=== PATIENT | male | born 1960 | race Caucasian/White ===

== ENCOUNTER 2018-05-23 17:44 | Emergency (ER) | payer OTHER, SELFPAY ==
[~2018-05-23] VITALS: Ht 165.1 cm; Wt 68.0 kg
--- NOTE | 2018-05-23 18:13 | Emergency Room Report ---
History of Present Illness General Chief Complaint: Medical Clearance Source: Patient Present Illness HPI 58-year-old male presents emergency department for medical clearance. Patient denies symptoms at this time he does report he is having some gastritis and he has a history of stomach ulcers for which he takes omeprazole for. he also has a history of high blood pressure, and bipolar disorder. Denies CP, Palpitations , LOC, AMS, dizziness, Changes in Vision, Sensation, paresthesias, or a sudden severe headache. Allergies: Coded Allergies: No Known Allergies (Unverified , 05/23/18) Patient History Past Medical History: see triage record, HTN Past Surgical History: none Pertinent Family History: none Reviewed Nursing Documentation: PMH: Agreed; PSxH: Agreed Nursing Documentation-PMH Hx Gastrointestinal Problems: Yes - ulcers Review of Systems All Other Systems: negative except mentioned in HPI Physical Exam Vital Signs Date Time Temp Pulse Resp B/P (MAP) Pulse Ox O2 Delivery O2 Flow Rate FiO2 05/23/18 17:44 98.4 144 18 119/81 97 Room Air 98.4 Sp02 EP Interpretation: reviewed, normal General Appearance: no apparent distress, alert, GCS 15, non-toxic Head: normocephalic, atraumatic Eyes: bilateral eye normal inspection, bilateral eye PERRL ENT: hearing grossly normal, normal voice Neck: full range of motion Respiratory: chest non-tender, lungs clear, normal breath sounds, speaking full sentences Cardiovascular #1: regular rate, rhythm, no edema, tachycardia Gastrointestinal: normal bowel sounds, non tender, soft Rectal: deferred Musculoskeletal: back normal, gait/station normal, normal range of motion, non- tender Neurologic: alert, oriented x3, responsive, motor strength/tone normal, sensory intact, speech normal, grossly normal Psychiatric: judgement/insight normal Skin: normal color, no rash, warm/dry, well hydrated, other - no obvious open wounds or infections Medical Decision Making PA Attestation Dr. lowry is my supervising Physician whom patient management has been discussed with. Diagnostic Impression: Primary Impression: Medical clearance for incarceration ER Course 58-year-old male presents emergency department for medical clearance. Patient denies symptoms at this time he does report he is having some gastritis and he has a history of stomach ulcers for which he takes omeprazole for. he also has a history of high blood pressure, and bipolar disorder. Denies CP, Palpitations , LOC, AMS, dizziness, Changes in Vision, Sensation, paresthesias, or a sudden severe headache. Ddx considered but are not limited to Head Trauma, VT, ACS, SI/HI, URI, SAH, Fractures, Dislocations, Tazer barbs, Abrasions. Vital signs: tachycardic, pt. is afebrile H&PE are most consistent with: normal limited physical examination. ORDERS: -EKG: sinus tach no acute ST changes. - Troponin: WNL -CK: mild elevation at 335 CBC: unremarkable CMP: normal electrolytes ED INTERVENTIONS: -1 Liter NS -5mg Metoprolol IV pt. hr. has normalized. EKG showed no acute ST changes, cardiac enzymes were normal. Pt. Stable for close outpatient follow up. D/c'd to Law enforcement. DISCHARGE: At this time pt. is stable for d/c to law enforcement. Will provide printed patient care instructions, and any necessary prescriptions. Care plan and follow up instructions have been discussed with the patient prior to discharge. Labs Test 05/23/18 18:30 White Blood Count 9.8 K/UL (4.8-10.8) Red Blood Count 5.43 M/UL (4.70-6.10) Hemoglobin 16.2 G/DL (14.2-18.0) Hematocrit 48.3 % (42.0-52.0) Mean Corpuscular Volume 89 FL (80-99) Mean Corpuscular Hemoglobin 29.9 PG (27.0-31.0) Mean Corpuscular Hemoglobin Concent 33.6 G/DL (32.0-36.0) Red Cell Distribution Width 12.2 % (11.6-14.8) Platelet Count 203 K/UL (150-450) Mean Platelet Volume 5.5 FL (6.5-10.1) Neutrophils (%) (Auto) 77.3 % (45.0-75.0) Lymphocytes (%) (Auto) 7.2 % (20.0-45.0) Monocytes (%) (Auto) 14.4 % (1.0-10.0) Eosinophils (%) (Auto) 0.3 % (0.0-3.0) Basophils (%) (Auto) 0.9 % (0.0-2.0) Sodium Level 140 MMOL/L (136-145) Potassium Level 3.7 MMOL/L (3.5-5.1) Chloride Level 101 MMOL/L (98-107) Carbon Dioxide Level 25 MMOL/L (21-32) Anion Gap 14 mmol/L (5-15) Blood Urea Nitrogen 7 mg/dL (7-18) Creatinine 1.0 MG/DL (0.55-1.30) Estimat Glomerular Filtration Rate > 60 mL/min (>60) Glucose Level 122 MG/DL (74-106) Calcium Level 10.7 MG/DL (8.5-10.1) Total Bilirubin 0.7 MG/DL (0.2-1.0) Aspartate Amino Transf (AST/SGOT) 53 U/L (15-37) Alanine Aminotransferase (ALT/SGPT) 68 U/L (12-78) Alkaline Phosphatase 101 U/L (46-116) Total Creatine Kinase 335 U/L (26-308) Troponin I 0.000 ng/mL (0.000-0.056) Total Protein 8.0 G/DL (6.4-8.2) Albumin 3.8 G/DL (3.4-5.0) Globulin 4.2 g/dL Albumin/Globulin Ratio 0.9 (1.0-2.7) EKG Diagnostic Results EP Interpretation: Dr. Holley Rate: tachycardiac - 134 bpm Rhythm: NSR ST Segments: no acute changes ASA given to the pt in ED: No PA Scribe Text This Interpretation was scribed by KRIS Carmona. Last Vital Signs Date Time Temp Pulse Resp B/P (MAP) Pulse Ox O2 Delivery O2 Flow Rate FiO2 05/23/18 17:44 98.4 144 18 119/81 97 Room Air 98.4 Disposition: D/C TO LAW ENFORCEMENT IN CUST Condition: Stable Departure Forms: Retirement Clearance Patient Instructions: Medical Screening Exam Additional Instructions: Take medications as directed. Follow up with a Primary Care Provider in 3-5 days, even if your symptoms have resolved. --Please review list of primary care clinics, if you do not already have a primary care provider Return sooner to ED if new symptoms occur, or current symptoms become worse. - Please note that this Emergency Department Report was dictated using [employer] wall finisher technology software, occasionally this can lead to erroneous entry secondary to interpretation by the dictation equipment. Katie Carmona May 23, 2018 18:13
[2018-05-23 18:33] VITALS: BP 157/114
[2018-05-23] MEDS ORDERED: Metoprolol 5mg/5ml Inj IVP ONE (18:45)
[2018-05-23 19:36] LABS: BASOPHILS % (AUTO) 0.9 % (0.0-2.0); EOSINOPHILS % (AUTO) 0.3 % (0.0-3.0); HEMATOCRIT 48.3 % (42.0-52.0); HEMOGLOBIN 16.2 G/DL (14.2-18.0); LYMPHOCYTES % (AUTO) 7.2 % (20.0-45.0); MEAN CORPUSCULAR VOLUME 89 FL (80-99); MONOCYTES % (AUTO) 14.4 % (1.0-10.0); NEUTROPHILS % (AUTO) 77.3 % (45.0-75.0); PLATELET COUNT 203 K/UL (150-450); RED BLOOD COUNT 5.43 M/UL (4.70-6.10); RED CELL DISTRIBUTION WIDTH 12.2 % (11.6-14.8); WHITE BLOOD COUNT 9.8 K/UL (4.8-10.8)
[2018-05-23 19:37] LABS: ANION GAP 14 mmol/L (5-15); BLOOD UREA NITROGEN 7 mg/dL (7-18); CALCIUM 10.7 MG/DL (8.5-10.1); CARBON DIOXIDE 25 MMOL/L (21-32); CHLORIDE 101 MMOL/L (98-107); POTASSIUM 3.7 MMOL/L (3.5-5.1); SODIUM 140 MMOL/L (136-145)
[2018-05-23 19:42] LABS: ALANINE AMINOTRANSFERASE 68 U/L (12-78); ALBUMIN 3.8 G/DL (3.4-5.0); ALBUMIN/GLOBULIN RATIO 0.9 (1.0-2.7); ALKALINE PHOSPHATASE 101 U/L (46-116); ASPARTATE AMINO TRANSFERASE 53 U/L (15-37); BILIRUBIN,TOTAL 0.7 MG/DL (0.2-1.0); CREATINE KINASE 335 U/L (26-308)
[2018-05-23 19:54] VITALS: BP 169/105
[2018-05-23 20:01] VITALS: BP 169/105
== END 2018-05-23 20:01 ==
LOC: EMR 18:27
DX: Z02.89 Encounter for other administrative examinations (principal); I10 Essential (primary) hypertension; Z87.19 Personal history of other diseases of the digestive system; F31.9 Bipolar disorder, unspecified
CPT/HCPCS: 36415; 80053; 82550; 84484; 85025; 93005; 99283

== ENCOUNTER 2018-06-13 19:33 | Emergency (ER) | payer SELFPAY, OTHER ==
[~2018-06-13] VITALS: Ht 165.1 cm; Wt 72.6 kg
[2018-06-13] MEDS ORDERED: OMEPRAZOLE40 M1 ORAL (19:48)
[2018-06-13] MEDS ORDERED: METOPROLOL SUCC25 MG ORAL (19:48)
[2018-06-13] MEDS ORDERED: ABILIFY10 MG ORAL (19:48)
[2018-06-13] MEDS ORDERED: FLUOXETINE HCL20 MG ORAL (19:48)
[2018-06-13] MEDS ORDERED: LOSARTAN-HCTZ1 EAC1 ORAL (19:48)
[2018-06-13 19:52] VITALS: BP 120/77
--- NOTE | 2018-06-13 19:52 | Emergency Room Report ---
History of Present Illness General Chief Complaint: Medication Refill Source: Patient Present Illness HPI 58-year-old male patient presents ER brought in by police for okay clearance to book. Reports patient was allegedly arrested for assault. Patient has a history of high blood pressure and was brought to the ER for clearance to book. Patient denies chest pain, shortness breath, fever, other acute symptoms. his head trauma, losing consciousness, hitting head. Denies vomiting other symptoms. Denies drug use. Reports history of drinking alcohol. Reports no suicidal or homicidal ideation. Allergies: Coded Allergies: No Known Allergies (Unverified , 05/23/18) Patient History Past Medical History: see triage record Reviewed Nursing Documentation: PMH: Agreed; PSxH: Agreed Nursing Documentation-PMH Past Medical History: No Stated History Hx Gastrointestinal Problems: Yes - ulcers Review of Systems All Other Systems: negative except mentioned in HPI Physical Exam Vital Signs Date Time Temp Pulse Resp B/P (MAP) Pulse Ox O2 Delivery O2 Flow Rate FiO2 06/13/18 19:43 98.5 111 16 120/77 97 Room Air 98.4 Sp02 EP Interpretation: reviewed, normal General Appearance: well appearing, no apparent distress, alert, GCS 15, non- toxic Head: normocephalic, atraumatic Eyes: bilateral eye normal inspection, bilateral eye PERRL ENT: hearing grossly normal, normal pharynx, no angioedema, normal voice, uvula midline, moist mucus membranes Neck: full range of motion Respiratory: lungs clear, normal breath sounds, no rhonchi, no respiratory distress, no accessory muscle use, no wheezing, speaking full sentences Cardiovascular #1: regular rate, rhythm, no edema Gastrointestinal: non tender, soft, no mass, non-distended, no guarding, no rebound Genitourinary: no CVA tenderness Musculoskeletal: back normal, digits/nails normal, gait/station normal, normal range of motion, non-tender Neurologic: alert, oriented x3, responsive, crew scheduler III-XII nml as tested, motor strength/tone normal, sensory intact, cerebellar normal, normal gait, speech normal Psychiatric: mood/affect normal Skin: no rash Medical Decision Making PA Attestation Dr. Ramsey is my supervising Physician whom patient management has been discussed with. Diagnostic Impression: Primary Impression: Medical clearance for incarceration ER Course Pt. presents to the ED requesting medical clearance for booking. Multiple differentials considered. Patient Vitals Signs WNL, patient is afebrile. Mild elevation of pulse, will continue to monitor. ER COURSE: Patient denies acute complaints at this time. PE benign. No skull depression, lungs clear to auscultation, no abdominal TTP. No focal neuro deficits. Patient not suicidal or homicidal at this time. Patient in no acute distress, nontoxic appearing, breathing without difficulty. Recheck vitals, OK for discharge to police custody. ORDERS: none required at this time, the diagnosis is clinical ED INTERVENTIONS: None required at this time. DISCHARGE: At this time pt. is stable for d/c to police custody. nontoxic appearing, in no acute distress, talking without difficulty. Will provide printed patient care instructions, and any necessary prescriptions. Care plan and follow up instructions have been discussed with the patient prior to discharge - Please note that this Emergency Department Report was dictated using [employer]oth[employer] conveyor operator technology software, occasionally this can lead to erroneous entry secondary to interpretation by the dictation equipment. Last Vital Signs Date Time Temp Pulse Resp B/P (MAP) Pulse Ox O2 Delivery O2 Flow Rate FiO2 06/13/18 19:43 98.5 111 16 120/77 97 Room Air 98.4 Disposition: HOME, SELF-CARE Condition: Stable Patient Instructions: Managing Your High Blood Pressure Additional Instructions: Followup with primary care provider in 3 -5 days. Follow-up with primary care provider to discuss high blood pressure medication and maintenance. Take medications as directed. Patient questions asked and answered. ER precautions given, patient instructed to return to ER immediately for any new or worsening of symptoms. Hunter Manuel Jun 13, 2018 19:52
== END 2018-06-13 19:52 ==
LOC: EMR 19:50
DX: Z02.89 Encounter for other administrative examinations (principal); R03.0 Elevated blood-pressure reading, without diagnosis of hypertension
CPT/HCPCS: 99282

== ENCOUNTER 2019-05-20 12:03 | Emergency (ER) | payer OTHER ==
[~2019-05-20] VITALS: Ht 165.1 cm; Wt 68.0 kg
[~2019-05-20 12:03] MED LIST: ABILIFY10 MG ORAL; FLUOXETINE HCL20 MG ORAL; LOSARTAN-HCTZ1 EAC1 ORAL; METOPROLOL SUCC25 MG ORAL; OMEPRAZOLE40 M1 ORAL
--- NOTE | 2019-05-20 12:08 | NUR ---
ED Nurse Note: pt brought in by [facility] c/c syncopal episode, pt states he had about 8 syncopal episode and hit his head witnessed by bystanders in the train. pt denies any medical hx except asthma and bipolar. pt AA&ox4, gcs=15, skin warm and dry, resp even and unlabored on RA, VSS, NSR on monitor car operator, will cont monitor. safety precautions in place.
[2019-05-20 12:09] VITALS: BP 148/93
[2019-05-20 12:33] LABS: APPEARANCE,URINE CLEAR; BILIRUBIN, URINE NEGATIVE (NEGATIVE); COLOR,URINE PALE YELLOW; GLUCOSE, URINE (UA) NEGATIVE (NEGATIVE); KETONES,URINE NEGATIVE (NEGATIVE); LEUKOCYTE ESTERASE ,URINE NEGATIVE (NEGATIVE); NITRITE,URINE NEGATIVE (NEGATIVE); PH,URINE 6.5 (4.5-8.0); PROTEIN,URINE NEGATIVE (NEGATIVE); UROBILINOGEN,URINE NORMAL MG/DL (0.0-1.0)
[2019-05-20 12:34] LABS: BASOPHILS % (AUTO) 1.1 % (0.0-2.0); EOSINOPHILS % (AUTO) 1.6 % (0.0-3.0); HEMATOCRIT 46.3 % (42.0-52.0); HEMOGLOBIN 15.1 G/DL (14.2-18.0); LYMPHOCYTES % (AUTO) 16.5 % (20.0-45.0); MEAN CORPUSCULAR VOLUME 90 FL (80-99); MONOCYTES % (AUTO) 11.2 % (1.0-10.0); NEUTROPHILS % (AUTO) 69.6 % (45.0-75.0); PLATELET COUNT 252 K/UL (150-450); RED BLOOD COUNT 5.15 M/UL (4.70-6.10); RED CELL DISTRIBUTION WIDTH 13.1 % (11.6-14.8); WHITE BLOOD COUNT 10.2 K/UL (4.8-10.8)
[2019-05-20 12:45] LABS: ANION GAP 10 mmol/L (5-15); BLOOD UREA NITROGEN 7 mg/dL (7-18); CALCIUM 9.6 MG/DL (8.5-10.1); CARBON DIOXIDE 29 MMOL/L (21-32); CHLORIDE 104 MMOL/L (98-107); POTASSIUM 4.2 MMOL/L (3.5-5.1); SODIUM 143 MMOL/L (136-145)
[2019-05-20 13:03] LABS: ALANINE AMINOTRANSFERASE 19 U/L (12-78); ALBUMIN 3.4 G/DL (3.4-5.0); ALBUMIN/GLOBULIN RATIO 0.9 (1.0-2.7); ALKALINE PHOSPHATASE 81 U/L (46-116); ASPARTATE AMINO TRANSFERASE 23 U/L (15-37); BILIRUBIN,TOTAL 0.2 MG/DL (0.2-1.0); CKMB 5.8 NG/ML (0.0-3.6); CREATINE KINASE 441 U/L (26-308)
--- NOTE | 2019-05-20 13:30 | NUR ---
ED Nurse Note: pt resting at this time, vss, NSR on monitor technician, all safety precautions in place, will cont monitor.
--- NOTE | 2019-05-20 13:40 | Diagnostic Imaging Report ---
Indications: Syncope, status post fall Technique: Spiral acquisitions obtained through the brain. Angled axial and coronal 5 x 5 mm slices were reconstructed. Total dose length product 1411.27 mGycm. CTDI vol(s) 70.38 mGy. Dose reduction achieved using automated exposure control Comparison: None. Findings: No acute intracranial hemorrhage or edema. No mass effect nor midline shift. Normal lipscomb-white differentiation. Normal size ventricles and extra axial CSF spaces. The mastoids are clear. There is minimal ethmoid and left maxillary sinus mucosal disease noted. The visualized orbits are unremarkable. The calvarium is intact Impression: Negative The CT scanner at [facility] is accredited by the [employer] and the scans are performed using protocols designed to limit radiation exposure to as low as reasonably achievable to attain images of sufficient resolution adequate for diagnostic evaluation.
--- NOTE | 2019-05-20 13:57 | Diagnostic Imaging Report ---
Indication: Shortness of breath Technique: One view of the chest Comparison: none Findings: Lungs and pleural spaces are clear. Heart size is normal Impression: No acute process
--- NOTE | 2019-05-20 14:05 | NUR ---
ED Nurse Note: pt given sandwich and juice, verified w/ ERMD.
[2019-05-20 14:09] VITALS: BP 145/76
--- NOTE | 2019-05-20 14:27 | NUR ---
ED Nurse Note: pt ambulated to restroom, steady gait noted, no syncopal episode.
--- NOTE | 2019-05-20 14:34 | Emergency Room Report ---
History of Present Illness General Chief Complaint: Syncope Source: Patient, EMS Present Illness HPI 59-year-old male presents ED for evaluation. Patient by EMS from home. Patient states he passed out today twice. Also passed out twice yesterday. States he hit his head as well. Does not know why this is happening. Denies chest pain or shortness of breath. Denies drug use. States that he supposed be taking metoprolol but stopped because it was making him feel sleepy. No other aggravating relieving factors. Denies any other associated symptoms Allergies: Coded Allergies: No Known Allergies (Unverified , 05/23/18) Patient History Past Medical History: HTN, psych hx Past Surgical History: none Pertinent Family History: none Social History: Denies: smoking, alcohol use, drug use Immunizations: UTD Reviewed Nursing Documentation: PMH: Agreed; PSxH: Agreed Nursing Documentation-PMH Hx Asthma: Yes Hx Gastrointestinal Problems: Yes - ulcers History Of Psychiatric Problem: Yes - BIPOLAR Review of Systems All Other Systems: negative except mentioned in HPI Physical Exam Vital Signs Date Time Temp Pulse Resp B/P (MAP) Pulse Ox O2 Delivery O2 Flow Rate FiO2 05/20/19 11:54 98.4 65 18 150/90 (110) 98 Room Air Sp02 EP Interpretation: reviewed, normal General Appearance: no apparent distress, alert, GCS 15, non-toxic Head: normocephalic, atraumatic Eyes: bilateral eye normal inspection, bilateral eye PERRL ENT: hearing grossly normal, normal pharynx, no angioedema, normal voice Neck: full range of motion, supple/symm/no masses Respiratory: chest non-tender, lungs clear, normal breath sounds, speaking full sentences Cardiovascular #1: regular rate, rhythm, no edema Cardiovascular #2: 2+ carotid (R), 2+ carotid (L), 2+ radial (R), 2+ radial (L) , 2+ dorsalis pedis (R), 2+ dorsalis pedis (L) Gastrointestinal: normal bowel sounds, non tender, soft, non-distended, no guarding, no rebound Rectal: deferred Genitourinary: normal inspection, no CVA tenderness Musculoskeletal: back normal, gait/station normal, normal range of motion, non- tender Neurologic: alert, oriented x3, responsive, motor strength/tone normal, sensory intact, speech normal Psychiatric: judgement/insight normal, memory normal, mood/affect normal, no suicidal/homicidal ideation Reflexes: 3+ bicep (R), 3+ bicep (L), 3+ tricep (R), 3+ tricep (L), 3+ knee (R) , 3+ knee (L) Lymphatic: no adenopathy Medical Decision Making Diagnostic Impression: Primary Impression: Syncope Qualified Codes: R55 - Syncope and collapse ER Course Hospital Course 59-year-old M presents ED s/p syncopal episode. Differential diagnoses include: IL/unstable angina, arrythmia, dehydration, CVA/ TIA Clinical course Patient placed on stretcher. on sales representative malt liquors. After initial history and physical I ordered labs, EKG, chest x-ray, IVFs, CT Brain labs reviewed- no leukocytosis, hemoglobin/hematocrit ok, electrolytes okay, troponins negative, UDS negative EKG- NSR, no acute ischemic changes interpreted by me Chest x-ray- no acute process CT brain-unremarkable Given continued syncopal episodes patient will require inpatient admission and further neurological work-up Because of insurance patient will be transferred I. I feel this is a highly complex case requiring extensive working including EKG/Rhythm strip, Xray/CT/US, Blood/urine lab work, repeat exams while in ED, and administration of strong opiates/narcotics for pain control, admission to hospital or close patient follow up. Diagnosis - syncope transferred in serious condition Labs Test 05/20/19 12:17 White Blood Count 10.2 K/UL (4.8-10.8) Red Blood Count 5.15 M/UL (4.70-6.10) Hemoglobin 15.1 G/DL (14.2-18.0) Hematocrit 46.3 % (42.0-52.0) Mean Corpuscular Volume 90 FL (80-99) Mean Corpuscular Hemoglobin 29.4 PG (27.0-31.0) Mean Corpuscular Hemoglobin Concent 32.7 G/DL (32.0-36.0) Red Cell Distribution Width 13.1 % (11.6-14.8) Platelet Count 252 K/UL (150-450) Mean Platelet Volume 5.5 FL (6.5-10.1) Neutrophils (%) (Auto) 69.6 % (45.0-75.0) Lymphocytes (%) (Auto) 16.5 % (20.0-45.0) Monocytes (%) (Auto) 11.2 % (1.0-10.0) Eosinophils (%) (Auto) 1.6 % (0.0-3.0) Basophils (%) (Auto) 1.1 % (0.0-2.0) Urine Color Pale yellow Urine Appearance Clear Urine pH 6.5 (4.5-8.0) Urine Specific [place] 1.010 (1.005-1.035) Urine Protein Negative (NEGATIVE) Urine Glucose (UA) Negative (NEGATIVE) Urine Ketones Negative (NEGATIVE) Urine Blood Negative (NEGATIVE) Urine Nitrite Negative (NEGATIVE) Urine Bilirubin Negative (NEGATIVE) Urine Urobilinogen Normal MG/DL (0.0-1.0) Urine Leukocyte Esterase Negative (NEGATIVE) Sodium Level 143 MMOL/L (136-145) Potassium Level 4.2 MMOL/L (3.5-5.1) Chloride Level 104 MMOL/L (98-107) Carbon Dioxide Level 29 MMOL/L (21-32) Anion Gap 10 mmol/L (5-15) Blood Urea Nitrogen 7 mg/dL (7-18) Creatinine 1.0 MG/DL (0.55-1.30) Estimat Glomerular Filtration Rate > 60 mL/min (>60) Glucose Level 110 MG/DL (74-106) Calcium Level 9.6 MG/DL (8.5-10.1) Total Bilirubin 0.2 MG/DL (0.2-1.0) Aspartate Amino Transf (AST/SGOT) 23 U/L (15-37) Alanine Aminotransferase (ALT/SGPT) 19 U/L (12-78) Alkaline Phosphatase 81 U/L (46-116) Total Creatine Kinase 441 U/L (26-308) Creatine Kinase MB 5.8 NG/ML (0.0-3.6) Creatine Kinase MB Relative Index 1.3 Troponin I 0.000 ng/mL (0.000-0.056) Pro-B-Type Natriuretic Peptide 50 pg/mL (0-125) Total Protein 7.2 G/DL (6.4-8.2) Albumin 3.4 G/DL (3.4-5.0) Globulin 3.8 g/dL Albumin/Globulin Ratio 0.9 (1.0-2.7) Urine Opiates Screen Negative (NEGATIVE) Urine Barbiturates Screen Negative (NEGATIVE) Phencyclidine (PCP) Screen Negative (NEGATIVE) Urine Amphetamines Screen Negative (NEGATIVE) Urine Benzodiazepines Screen Negative (NEGATIVE) Urine Cocaine Screen Negative (NEGATIVE) Urine Marijuana (THC) Screen Negative (NEGATIVE) EKG Diagnostic Results Rate: normal Rhythm: NSR ST Segments: no acute changes ASA given to the pt in ED: No Rhythm Strip Diag. Results EP Interpretation: yes Rhythm: NSR, no PVC's, no ectopy Chest X-Ray Diagnostic Results Chest X-Ray Diagnostic Results : Chest X-Ray Ordered: Yes # of Views/Limited/Complete: 1 View Indication: Other EP Interpretation: Yes Interpretation: no consolidation, no effusion, no pneumothorax, no acute cardiopulmonary disease Impression: No acute disease Electronically Signed by: Electronically signed by Avery Holley MD CT/MRI/US Diagnostic Results CT/MRI/US Diagnostic Results : Imaging Test Ordered: CT Head Impression no acute process Last Vital Signs Date Time Temp Pulse Resp B/P (MAP) Pulse Ox O2 Delivery O2 Flow Rate FiO2 05/20/19 12:09 98.4 67 18 148/93 98 Room Air Status: improved Disposition: XFER SHT-TRM HOSP Condition: Serious Referrals: NON PHYSICIAN (PCP) Avery Holley MD May 20, 2019 14:34
[2019-05-20 16:09] VITALS: BP 156/86
[2019-05-20 16:30] VITALS: BP 153/78
--- NOTE | 2019-05-20 16:30 | NUR ---
ED Nurse Note: report given to LILA Saldana from [facility]. pt transferring to [facility] for continuity of care, pt vss, iv intact and patent, Nsr on cardiac catheterization technologist. ambulance at the bedside.
--- NOTE | 2019-05-20 16:35 | NUR ---
ED Nurse Note: care endorsed to ambulance personnel.
--- NOTE | 2019-05-21 13:11 | Cardiology Report ---
APPROVED REPORT EKG Measurement Heart [id number] Normal sinus rhythm Minimal voltage criteria for LVH, may be normal variant Possible Anterior infarct, age undetermined Abnormal ECG
== END 2019-05-20 16:30 | disposition short-term general hospital (02) ==
LOC: EDBD 12:03 → EMR 13:10
DX: R55 Syncope and collapse (principal); F31.9 Bipolar disorder, unspecified
CPT/HCPCS: 36415; 70450; 71045; 80053; 80307; 81003; 82550; 82553; 82962; 83880; 84484; 85025; 93005; 96360; 99285

== ENCOUNTER 2019-11-30 23:18 | Emergency (ER) | payer OTHER ==
[~2019-11-30] VITALS: Ht 157.5 cm; Wt 81.6 kg
[2019-11-30 23:30] VITALS: BP 144/80
--- NOTE | 2019-11-30 23:30 | NUR ---
ED Nurse Note: Patient brought in by RA from a care home c/o nausea, vomiting x3 days. Patient said "i am sick". Vomiting x1 at the ER, noted with yellowish emesis. Reports that he has been drinking alcohol all day. No SOB. Not in any distress.
--- NOTE | 2019-11-30 23:46 | NUR ---
ED Nurse Note: ERMD at bedside.
--- NOTE | 2019-11-30 23:48 | NUR ---
ED Nurse Note: IV line established. Blood specimen collected and sent to lab.
[2019-12-01] MEDS ORDERED: Pantoprazole Inj IV ONE
[2019-12-01 00:01] LABS: HEMATOCRIT 50.1 % (42.0-52.0); MEAN CORPUSCULAR VOLUME 88 FL (80-99); PLATELET COUNT 186 K/UL (150-450); RED BLOOD COUNT 5.71 M/UL (4.70-6.10); RED CELL DISTRIBUTION WIDTH 12.7 % (11.6-14.8); WHITE BLOOD COUNT 13.6 K/UL (4.8-10.8)
[2019-12-01 00:19] LABS: ALANINE AMINOTRANSFERASE 99 U/L (12-78); ALBUMIN 3.4 G/DL (3.4-5.0); ALBUMIN/GLOBULIN RATIO 0.9 (1.0-2.7); ALKALINE PHOSPHATASE 78 U/L (46-116); ASPARTATE AMINO TRANSFERASE 90 U/L (15-37); BILIRUBIN,TOTAL 0.4 MG/DL (0.2-1.0); BLOOD UREA NITROGEN 8 mg/dL (7-18); CALCIUM 8.3 MG/DL (8.5-10.1); CARBON DIOXIDE 25 MMOL/L (21-32)
[2019-12-01 00:28] LABS: CHLORIDE 101 MMOL/L (98-107); POTASSIUM 3.3 MMOL/L (3.5-5.1); SODIUM 141 MMOL/L (136-145)
[2019-12-01 01:12] VITALS: BP 152/86
--- NOTE | 2019-12-01 01:13 | NUR ---
ED Nurse Note: Urine specimen collected and sent to lab.
[2019-12-01] MEDS ORDERED: LORazepam Inj 2mg/ml 1ml IV ONE ×2 (01:15→02:30)
[2019-12-01 01:24] LABS: APPEARANCE,URINE SLIGHTLY CLOUDY; BILIRUBIN, URINE NEGATIVE (NEGATIVE); COLOR,URINE PALE YELLOW; GLUCOSE, URINE (UA) NEGATIVE (NEGATIVE); KETONES,URINE 2+ (NEGATIVE); LEUKOCYTE ESTERASE ,URINE NEGATIVE (NEGATIVE); NITRITE,URINE NEGATIVE (NEGATIVE); PH,URINE 5 (4.5-8.0); PROTEIN,URINE 1+ (NEGATIVE); UROBILINOGEN,URINE NORMAL MG/DL (0.0-1.0)
[2019-12-01] MEDS ORDERED: chlordiazePOXIDE 25mg Cap ORAL ONE (02:30)
--- NOTE | 2019-12-01 02:45 | Emergency Room Report ---
History of Present Illness General Chief Complaint: Nausea, Vomiting, and Diarrhea Source: Patient Present Illness HPI This a 59-year-old male who is an alcoholic. He presents with chief complaint of not feeling well and feeling nauseous and vomiting. He said he decreased drinking today. Started getting tremulous so he has some drink 2 hours ago. Has been vomiting so he came in. Similar symptom in the past. Said he does not feel well. [place] dehydrated. Vomiting is nonbloody nonbilious. No. Denies any other complaint. Has generalized body pain and abdominal pain. Allergies: Coded Allergies: No Known Allergies (Unverified , 05/23/18) Patient History Past Medical History: see triage record, old chart reviewed Past Surgical History: none Pertinent Family History: none Social History: Reports: alcohol use Immunizations: other Reviewed Nursing Documentation: PMH: Agreed; PSxH: Agreed Nursing Documentation-PMH Hx Asthma: Yes Hx Gastrointestinal Problems: Yes - ulcers Review of Systems Constitutional: Reports: malaise, weakness Eye: Denies: eye pain, blurred vision ENT: Denies: ear pain, nose congestion, throat swelling Respiratory: Denies: cough, shortness of breath Cardiovascular: Denies: chest pain, palpitations Gastrointestinal: Reports: abdominal pain, nausea, vomiting; Denies: diarrhea Musculoskeletal: Denies: back pain, joint pain Skin: Denies: rash Neurological: Denies: headache, numbness Endocrine: Denies: increased thirst, increased urine Hematologic/Lymphatic: Denies: easy bruising All Other Systems: negative except mentioned in HPI Physical Exam Vital Signs Date Time Temp Pulse Resp B/P (MAP) Pulse Ox O2 Delivery O2 Flow Rate FiO2 11/30/19 23:28 132 20 178/109 (132) 97 Room Air 11/30/19 23:30 98.7 Vitals with tachycardia and hypotension Sp02 EP Interpretation: reviewed, normal General Appearance: alert, mild distress, Chronically Ill Head: normocephalic, atraumatic Eyes: bilateral eye PERRL, bilateral eye EOMI ENT: hearing grossly normal, normal pharynx Neck: full range of motion, supple, no meningismus Respiratory: chest non-tender, lungs clear, normal breath sounds Cardiovascular #1: regular rate, rhythm, no murmur, tachycardia Gastrointestinal: normal bowel sounds, non tender, no mass, no organomegaly, no bruit, non-distended Musculoskeletal: back normal, normal range of motion, gait/station normal Neurologic: other - Tremulous Psychiatric: mood/affect normal Medical Decision Making Diagnostic Impression: Primary Impression: Alcohol withdrawal syndrome Qualified Codes: F10.230 - Alcohol dependence with withdrawal, uncomplicated Additional Impression: Alcoholic hepatitis Qualified Codes: K70.10 - Alcoholic hepatitis without ascites ER Course Patient presents with alcohol withdrawal symptoms. Heart rate improved after IV fluid and Ativan. No evidence of infection. No evidence of an acute abdomen. Abdomen is otherwise soft. No evidence of an acute abdomen. While in the ER, he is back to low-grade temperature. I suspect that he also has some viral illness going on. No evidence of pneumonia, meningitis, sepsis or acute abdomen. Patient felt better now. Will discharge home in the morning. Last Vital Signs Date Time Temp Pulse Resp B/P (MAP) Pulse Ox O2 Delivery O2 Flow Rate FiO2 12/01/19 01:12 97.6 114 17 152/86 96 Room Air Status: improved Disposition: HOME, SELF-CARE Condition: Stable Scripts Ibuprofen* (MOTRIN*) 600 Mg Tablet 600 MG ORAL THREE TIMES A DAY, #30 TAB 0 Refills Prov: Constantine Valadez MD 12/01/19 Chlordiazepoxide (Chlordiazepoxide HCl) 25 Mg Capsule 25 MG ORAL THREE TIMES A DAY, #15 CAP 0 Refills Prov: Constantine Valadez MD 12/01/19 Referrals: NON PHYSICIAN (PCP) Additional Instructions: Abstain from alcohol. Go to rehab. Follow-up with your doctor in 7 days. Return if worse. Constantine Valadez MD Dec 01, 2019 02:45
[2019-12-01] MEDS ORDERED: Acetaminophen 500mg (ES) tab ORAL ONE (03:00)
[2019-12-01 03:11] VITALS: BP 158/77
[2019-12-01] MEDS ORDERED: IBUPROFEN600 MG ORAL (03:21)
[2019-12-01] MEDS ORDERED: LIBRIUM25 MG ORAL (03:21)
[2019-12-01 06:00] VITALS: BP 145/77
--- NOTE | 2019-12-01 06:00 | NUR ---
ED Nurse Note: Pt cleared by ERMD for discharge. DC instructions/prescription was given and explained to pt and verbalized understanding of teachings. Offered placement options but refused to disclose address. Snacks provided. Pt clothing is adequate for the weather. All medical deviecs such as ID band and IV line removed. Transportation was offered but will take the bus instead. Pt is AAO x4, ambulatory and left with all personal belongings.
== END 2019-12-01 06:00 | disposition home or self-care (01) ==
LOC: EDUNIT# 23:18 → EDBD 23:18 → EMR 23:52
DX: F10.230 Alcohol dependence with withdrawal, uncomplicated (principal); K70.10 Alcoholic hepatitis without ascites
CPT/HCPCS: 36415; 80053; 81003; 83690; 85007; 85025; 86710; 96361; 96374; 96375; 96376; G0480; J2405; J7030; S0164; Z7502; 99284